=== PATIENT | male | born 1980 | race African-American/Black ===

== ENCOUNTER 2020-02-17 17:31 | Inpatient (IN) | payer MEDICARE, MEDICAID ==
[~2020-02-17] VITALS: Ht 172.7 cm; Wt 78.9 kg
[2020-02-17] MEDS ORDERED: MORPHINE SULFATE 4 MG/ML CPJ (NOT FOR IM USE) IV STA (20:55)
[2020-02-17] MEDS ORDERED: ONDANSETRON HCL 4MG/2ML INJ IV STA (20:55)
[2020-02-17] MEDS ORDERED: FUROSEMIDE 40MG/4ML VIAL IV ONE (21:00)
[2020-02-17] MEDS ORDERED: ASPIRIN 81MG TABLET PO ONE (21:00)
[2020-02-17] MEDS: NITROGLYCERIN 0.4MG TABLET SL SL PRN ×3 (21:16→23:52)
[2020-02-17 21:48] LABS: BASOPHILS % 1.2 % (0.0-2.0); EOSINOPHILS % 1.7 % (0.0-5.0); HEMATOCRIT. 39.1 % (42.0-52.0); HEMOGLOBIN. 12.7 g/dL (14.0-18.0); LYMPHOCYTES % 20.1 % (20.0-50.0); MEAN CORPUSCULAR VOLUME 70.7 fL (80.0-94.0); MEAN PLATELET VOLUME 8.8 fl (7.4-10.4); MONOCYTES % 14.5 % (2.0-8.0); NEUTROPHILS % 62.5 % (40.0-76.0); PLATELET 347 x1000/uL (130-400); RED BLOOD CELL COUNT 5.54 mill/uL (4.7-6.1); RED CELL DISTRIBUTION WIDTH 22.4 % (11.6-14.6)
[2020-02-17 21:50] LABS: CHLORIDE 106 mEq/L (98-107)
[2020-02-17 22:24] LABS: PLATELET ESTIMATE NORMAL
[2020-02-18] MEDS: MORPHINE SULFATE 2 MG/ML CPJ (NOT FOR IM USE) IV PRN ×4 (02:55→20:05)
[2020-02-18] MEDS ORDERED: MAGNESIUM/ALUMINUM HYDROXIDE/SIMETHICONE 30ML UDC PO PRN (08:45)
[2020-02-18] MEDS ORDERED: DOCUSATE SODIUM 100MG CAPSULE PO PRN (08:45)
[2020-02-18] MEDS ORDERED: CLONIDINE 0.1MG TABLET PO PRN (08:45)
[2020-02-18] MEDS ORDERED: ONDANSETRON HCL 4MG/2ML INJ IV PRN (08:45)
[2020-02-18] MEDS ORDERED: HYDROCODONE/ACETAMINOPHEN 5/325MG TABLET PO PRN (08:45)
[2020-02-18] MEDS ORDERED: ACETAMINOPHEN 325MG TABLET PO PRN (08:45)
[2020-02-18 10:17] LABS: TOTAL IRON BINDING CAPACITY 328 ug/dL (250-450)
[2020-02-18] MEDS: PANTOPRAZOLE SODIUM 40 MG/VIAL IV SCH (11:13)
[2020-02-18] MEDS: ENOXAPARIN 40MG/0.4ML SYR SUBCUT SCH (11:13)
[2020-02-18 12:07] LABS: FERRITIN 222 ng/mL (22-322)
[2020-02-18 12:19] LABS: HEPATITIS B SURFACE ANTIGEN NEGATIVE
[2020-02-18 12:48] LABS: HEPATITIS A AB IGM NEGATIVE (NEGATIVE)
[2020-02-18] MEDS ORDERED: FUROSEMIDE 40MG/4ML VIAL IVP SCH (15:00)
[2020-02-18 15:20] VITALS: BP 115/72
[2020-02-18 16:00] VITALS: BP 119/84
[2020-02-18] MEDS ORDERED: FURO40TA5 MT (17:09)
[2020-02-18] MEDS ORDERED: SACU1TAB7 MT (17:13)
[2020-02-18] MEDS ORDERED: METO-539 PO (17:14)
[2020-02-18] MEDS ORDERED: CIPR250S3 PO (17:16)
[2020-02-18] MEDS ORDERED: AMIO100T4 PO (17:20)
[2020-02-18] MEDS ORDERED: METR-167 PO (17:20)
[2020-02-18 20:00] VITALS: BP 110/73
[2020-02-19] VITALS: BP 113/69
[2020-02-19] MEDS: MORPHINE SULFATE 2 MG/ML CPJ (NOT FOR IM USE) IV PRN ×4 (00:33→18:18)
[2020-02-19 04:00] VITALS: BP 127/75
[2020-02-19 08:00] VITALS: BP 106/70
[2020-02-19] MEDS ORDERED: FUROSEMIDE 40MG/4ML VIAL IVP SCH (09:00)
[2020-02-19] MEDS: ENOXAPARIN 40MG/0.4ML SYR SUBCUT SCH (09:34)
[2020-02-19] MEDS: PANTOPRAZOLE SODIUM 40 MG/VIAL IV SCH (09:34)
[2020-02-19 12:00] VITALS: BP 104/50
[2020-02-19] MEDS ORDERED: DIATR MEGLU/DIATRIZOATE SOLN 30ML PO SCH (12:30)
[2020-02-19 16:00] VITALS: BP 109/77
[2020-02-19] MEDS: FUROSEMIDE 40MG/4ML VIAL IVP SCH (17:13)
[2020-02-19] MEDS: FERROUS SULFATE 325MG TABLET PO SCH (17:14)
[2020-02-19] MEDS ORDERED: IOHEXOL-300 100 ML BOTTLE ONE (19:23)
[2020-02-19 20:00] VITALS: BP 114/76
[2020-02-19] MEDS: CARVEDILOL 3.125 MG TABLET PO SCH (21:00)
[2020-02-19] MEDS: ENOXAPARIN 30MG/0.3ML SYR SUBCUT SCH (21:29)
[2020-02-19] MEDS: ASCORBIC ACID 500 MG TABLET PO SCH (21:33)
[2020-02-19] MEDS: MORPHINE SULFATE 4 MG/ML CPJ (NOT FOR IM USE) IV PRN (22:56)
[2020-02-20] VITALS: BP 113/76
[2020-02-20 04:00] VITALS: BP 109/78
[2020-02-20 05:43] LABS: CLARITY URINE CLEAR (CLEAR); COLOR URINE DARK YELLOW (YELLOW); KETONES URINE NEGATIVE (NEGATIVE); LEUKOCYTE ESTERASE URINE NEGATIVE (NEGATIVE); NITRITE URINE NEGATIVE (NEGATIVE); OCCULT BLOOD URINE NEGATIVE (NEGATIVE); PROTEIN URINE NEGATIVE (NEGATIVE); SPECIFIC GRAVITY URINE 1.026 (1.005-1.030)
[2020-02-20 06:11] LABS: *AMPHETAMINES SCREEN URINE NEGATIVE (NEGATIVE); *BARBITURATES SCREEN URINE NEGATIVE (NEGATIVE); *BENZODIAZEPINES SCREEN URINE NEGATIVE (NEGATIVE)
[2020-02-20 06:12] LABS: *COCAINE SCREEN URINE NEGATIVE (NEGATIVE); CANNABINOID URINE SCREEN PRESUMTIVE POSITIVE (NEGATIVE); OPIATES URINE SCREEN PRESUMTIVE POSITIVE (NEGATIVE); PHENCYCLIDINE URINE SCREEN NEGATIVE (NEGATIVE)
[2020-02-20 06:14] LABS: METHADONE URINE SCREEN NEGATIVE (NEGATIVE)
[2020-02-20 06:27] LABS: CHLORIDE 106 mEq/L (98-107)
[2020-02-20 06:33] LABS: BASOPHILS % 1.2 % (0.0-2.0); EOSINOPHILS % 4.2 % (0.0-5.0); HEMATOCRIT. 35.8 % (42.0-52.0); HEMOGLOBIN. 11.9 g/dL (14.0-18.0); LYMPHOCYTES % 24.3 % (20.0-50.0); MEAN CORPUSCULAR HEMOGLOBIN 23.4 pg (28.0-32.0); MEAN CORPUSCULAR VOLUME 70.8 fL (80.0-94.0); MONOCYTES % 13.6 % (2.0-8.0); NEUTROPHILS % 56.7 % (40.0-76.0); PLATELET 360 x1000/uL (130-400); RED BLOOD CELL COUNT 5.06 mill/uL (4.7-6.1); RED CELL DISTRIBUTION WIDTH 22.4 % (11.6-14.6)
[2020-02-20] MEDS: FUROSEMIDE 40MG/4ML VIAL IVP SCH ×2 (08:18→08:47)
[2020-02-20] MEDS: PANTOPRAZOLE SODIUM 40 MG/VIAL IV SCH (08:47)
[2020-02-20] MEDS: ASCORBIC ACID 500 MG TABLET PO SCH (08:47)
[2020-02-20] MEDS: ENOXAPARIN 30MG/0.3ML SYR SUBCUT SCH (08:48)
[2020-02-20] MEDS: FERROUS SULFATE 325MG TABLET PO SCH ×2 (10:17→12:15)
[2020-02-20] MEDS: CARVEDILOL 3.125 MG TABLET PO SCH (10:18)
[2020-02-20] MEDS ORDERED: COR3 PO (10:32)
[2020-02-20] MEDS ORDERED: LEVO500T2 MT (10:33)
[2020-02-20] MEDS: MORPHINE SULFATE 4 MG/ML CPJ (NOT FOR IM USE) IV PRN (10:41)
[2020-02-20 12:30] VITALS: BP 108/69
== END 2020-02-20 12:56 | disposition home or self-care (01) | DRG 308 ==
LOC: ER 17:31 → 7WST 02-18 00:12 → ENRESERV 02-18 11:06 → ER 02-18 14:18 → 5WST 02-18 23:26
PROVIDERS: ADMIT Internal Medicine; ATTEND Internal Medicine
PROC: 4B02XTZ Measurement of Cardiac Defibrillator, External Approach (ICD-10-PCS; principal; 2020-02-20)
DX: T82.120A Displacement of cardiac electrode, initial encounter (principal); J96.00 Acute respiratory failure, unspecified whether with hypoxia or hypercapnia; I50.23 Acute on chronic systolic (congestive) heart failure; J18.9 Pneumonia, unspecified organism; D68.59 Other primary thrombophilia; I42.9 Cardiomyopathy, unspecified; I47.2 Ventricular tachycardia; E72.20 Disorder of urea cycle metabolism, unspecified; D50.9 Iron deficiency anemia, unspecified; R91.8 Other nonspecific abnormal finding of lung field; E78.5 Hyperlipidemia, unspecified; F12.90 Cannabis use, unspecified, uncomplicated; R07.89 Other chest pain; R10.9 Unspecified abdominal pain; Y83.1 Surgical operation with implant of artificial internal device as the cause of abnormal reaction of the patient, or of later complication, without mention of misadventure at the time of the procedure; Z20.828 Contact with and (suspected) exposure to other viral communicable diseases; I11.0 Hypertensive heart disease with heart failure; R74.0 Nonspecific elevation of levels of transaminase and lactic acid dehydrogenase [LDH]; Z87.01 Personal history of pneumonia (recurrent); Z90.49 Acquired absence of other specified parts of digestive tract; Y92.89 Other specified places as the place of occurrence of the external cause
CPT/HCPCS: 36415; 71045; 74177; 76700; 80048; 80053; 80076; 80305; 81003; 82140; 82248; 82728; 83540; 83550; 83880; 84484; 85025; 86705; 86709; 86803; 87340; 93005; 93306; 93970; 97162; 99285; C9113; J1650; J1940; J2270; J2405; Q9963; Q9967; U0003-CS

== ENCOUNTER 2020-04-18 22:36 | Inpatient (IN) | payer MEDICARE, MEDICAID ==
[~2020-04-18] VITALS: Ht 175.3 cm; Wt 117.0 kg
[~2020-04-18 22:36] MED LIST: AMIO100T4 PO; COR3 PO; FURO40TA5 MT; LEVO500T2 MT; SACU1TAB7 MT
[2020-04-18] MEDS ORDERED: ONDANSETRON HCL 4MG/2ML INJ IV STA (23:12)
[2020-04-18] MEDS ORDERED: KETOROLAC 30MG/ML VIAL IV STA (23:12)
[2020-04-18] MEDS ORDERED: ASPIRIN 81MG TABLET PO ONE (23:15)
[2020-04-18] MEDS ORDERED: MAGNESIUM/ALUMINUM HYDROXIDE/SIMETHICONE 30ML UDC PO ONE (23:15)
[2020-04-18] MEDS ORDERED: VISCOUS LIDOCAINE 2% 15 ML UDC PO ONE (23:15)
[2020-04-18] MEDS ORDERED: IOHEXOL-350 100 ML BOTTLE ONE (23:43)
[2020-04-18 23:57] LABS: CHLORIDE 102 mEq/L (98-107)
[2020-04-19] VITALS (30 sets, daily range): BP systolic 94–138; BP diastolic 56–96
[2020-04-19 00:01] LABS: ETHANOL BLOOD < 10 mg/dL
[2020-04-19 00:14] LABS: EOSINOPHILS % 0.5 % (0.0-5.0); HEMATOCRIT. 37.8 % (42.0-52.0); LYMPHOCYTES % 18.9 % (20.0-50.0); MEAN CORPUSCULAR HEMOGLOBIN 23.3 pg (28.0-32.0); MEAN CORPUSCULAR VOLUME 73.4 fL (80.0-94.0); MEAN PLATELET VOLUME 9.4 fl (7.4-10.4); MONOCYTES % 14.4 % (2.0-8.0); NEUTROPHILS % 65.2 % (40.0-76.0); PLATELET 528 x1000/uL (130-400); RED BLOOD CELL COUNT 5.15 mill/uL (4.7-6.1); RED CELL DISTRIBUTION WIDTH 24.8 % (11.6-14.6)
[2020-04-19] MEDS ORDERED: SODIUM CHLORIDE 0.9% 500 ML IV ONE (00:15)
[2020-04-19 00:29] LABS: INR 1.5; PROTHROMBIN TIME 15.7 sec (9.6-11.0)
[2020-04-19] MEDS ORDERED: FUROSEMIDE 40MG/4ML VIAL IVP ONE (00:30)
[2020-04-19] MEDS ORDERED: VANCOMYCIN 1 G PREMIX 200 ML IV SCH (00:30)
[2020-04-19] MEDS ORDERED: MORPHINE SULFATE 4 MG/ML CPJ (NOT FOR IM USE) IV ONE ×2 (00:30)
[2020-04-19] MEDS ORDERED: PIPERACILLIN/TAZ 3.375G PREMIX 50 ML IV ONE (00:30)
[2020-04-19 00:55] LABS: BG BASE EXCESS 1.3 mmol/L (-2.0-2.0); BG CARBOXYHEMOGLOBIN 1.4 % (0.5-1.5); BG DEOXYHEMOGLOBIN 8.7 % (0.0-5.0); BG FRACTION INSPIRED OXYGEN 21; BG HCO3 ACT 25.2 mmol/L (22.0-26.0); BG METHEMOGLOBIN 0.2 % (0.0-1.5); BG OXYGEN SATURATION 91.2 % (92.0-98.5); BG OXYHEMOGLOBIN 89.7 % (94.0-97.0); BG PCO2 37.5 mmHg (35.0-45.0); BG PH 7.446 (7.350-7.450); BG PO2 64.3 mmHg (75.0-100.0); BG SAMPLE SITE RIGHT RADIAL; BG TOTAL HEMOGLOBIN 12.5 g/dL (12.0-18.0); BG VENT MODE ROOM AIR
[2020-04-19] MEDS ORDERED: ENOXAPARIN 120MG/0.8ML SYR SUBCUT ONE (01:00)
[2020-04-19 01:42] LABS: CLARITY URINE CLEAR (CLEAR); COLOR URINE DARK YELLOW (YELLOW); KETONES URINE NEGATIVE (NEGATIVE); LEUKOCYTE ESTERASE URINE NEGATIVE (NEGATIVE); NITRITE URINE NEGATIVE (NEGATIVE); OCCULT BLOOD URINE NEGATIVE (NEGATIVE); PROTEIN URINE 1+ (NEGATIVE); SPECIFIC GRAVITY URINE 1.044 (1.005-1.030)
[2020-04-19 01:56] LABS: *AMPHETAMINES SCREEN URINE NEGATIVE (NEGATIVE); *BARBITURATES SCREEN URINE NEGATIVE (NEGATIVE); *BENZODIAZEPINES SCREEN URINE NEGATIVE (NEGATIVE); *COCAINE SCREEN URINE PRESUMTIVE POSITIVE (NEGATIVE); CANNABINOID URINE SCREEN PRESUMTIVE POSITIVE (NEGATIVE); METHADONE URINE SCREEN NEGATIVE (NEGATIVE); OPIATES URINE SCREEN PRESUMTIVE POSITIVE (NEGATIVE); PHENCYCLIDINE URINE SCREEN NEGATIVE (NEGATIVE)
[2020-04-19 05:12] LABS: PLATELET ESTIMATE INCREASED
[2020-04-19] MEDS ORDERED: MORPHINE SULFATE 2 MG/ML CPJ (NOT FOR IM USE) IV PRN (06:50)
[2020-04-19] MEDS ORDERED: DOCUSATE SODIUM 100MG CAPSULE PO PRN (07:15)
[2020-04-19] MEDS ORDERED: MAGNESIUM/ALUMINUM HYDROXIDE/SIMETHICONE 30ML UDC PO PRN (07:15)
[2020-04-19] MEDS ORDERED: ONDANSETRON HCL 4MG/2ML INJ IV PRN (07:15)
[2020-04-19] MEDS ORDERED: GUAIFENESIN 200MG/10ML SUGAR FREE UDC PO PRN (07:15)
[2020-04-19] MEDS ORDERED: DIPHENHYDRAMINE 50MG/ML VIAL IV PRN (07:15)
[2020-04-19] MEDS ORDERED: ACETAMINOPHEN 325MG TABLET PO PRN (07:15)
[2020-04-19] MEDS ORDERED: LORAZEPAM 2MG/ML CPJ IV PRN (07:15)
[2020-04-19] MEDS ORDERED: CLONIDINE 0.1MG TABLET PO PRN (07:15)
[2020-04-19] MEDS ORDERED: IPRATROPIUM/ALBUTEROL 0.5-3(2.5)MG/3ML NEB HHN PRN (07:15)
[2020-04-19] MEDS: LEVOFLOXACIN 500MG PREMIX 100 ML IV SCH (09:50)
[2020-04-19 09:52] LABS: T4 FREE 1.87 ng/dL (0.76-1.46)
[2020-04-19] MEDS ORDERED: LIDOCAINE HCL/PF 1% 2ML VIAL ONE (10:17)
[2020-04-19] MEDS: FUROSEMIDE 40MG/4ML VIAL IVP SCH (11:13)
[2020-04-19 14:01] LABS: BG BILEVEL POS AIRWAY PRESSURE 15/5; BG CARBOXYHEMOGLOBIN 0.8 % (0.5-1.5); BG DEOXYHEMOGLOBIN 0.8 % (0.0-5.0); BG FRACTION INSPIRED OXYGEN 40; BG HCO3 ACT 20.4 mmol/L (22.0-26.0); BG METHEMOGLOBIN 0.3 % (0.0-1.5); BG OXYGEN SATURATION 99.2 % (92.0-98.5); BG OXYHEMOGLOBIN 98.1 % (94.0-97.0); BG PCO2 35.1 mmHg (35.0-45.0); BG PH 7.382 (7.350-7.450); BG PO2 163.5 mmHg (75.0-100.0); BG SAMPLE SITE RIGHT RADIAL; BG TOTAL HEMOGLOBIN 12.8 g/dL (12.0-18.0); BG VENT MODE MASK - BIPAP
[2020-04-19] MEDS: SODIUM CHLORIDE 0.9% INJ 3ML FLUSH IVF SCH ×2 (14:54→22:10)
[2020-04-19] MEDS: MORPHINE SULFATE 2 MG/ML CPJ (NOT FOR IM USE) IV PRN (15:33)
[2020-04-19 17:21] LABS: CREATINE KINASE MB FRACTION 1.7 ng/mL (0.5-3.6)
[2020-04-19] MEDS: ENOXAPARIN 120MG/0.8ML SYR SUBCUT SCH (17:42)
[2020-04-19] MEDS: HYDROCODONE/ACETAMINOPHEN 10/325MG TABLET PO PRN (21:05)
[2020-04-19 23:29] LABS: CREATINE KINASE MB FRACTION 1.4 ng/mL (0.5-3.6)
[2020-04-20] VITALS (47 sets, daily range): BP systolic 51–141; BP diastolic 39–103
[2020-04-20] MEDS: MORPHINE SULFATE 2 MG/ML CPJ (NOT FOR IM USE) IV PRN ×2 (00:15→18:34)
[2020-04-20] MEDS: HYDROCODONE/ACETAMINOPHEN 10/325MG TABLET PO PRN ×2 (05:37→13:17)
[2020-04-20 05:42] LABS: HEMATOCRIT. 34.3 % (42.0-52.0); MEAN CORPUSCULAR HEMOGLOBIN 23.5 pg (28.0-32.0); MEAN CORPUSCULAR VOLUME 73.2 fL (80.0-94.0); MEAN PLATELET VOLUME 8.6 fl (7.4-10.4); PLATELET 482 x1000/uL (130-400); RED BLOOD CELL COUNT 4.68 mill/uL (4.7-6.1); RED CELL DISTRIBUTION WIDTH 23.9 % (11.6-14.6)
[2020-04-20 05:51] LABS: CHLORIDE 101 mEq/L (98-107)
[2020-04-20] MEDS: SODIUM CHLORIDE 0.9% INJ 3ML FLUSH IVF SCH ×3 (06:09→21:21)
[2020-04-20] MEDS: ENOXAPARIN 120MG/0.8ML SYR SUBCUT SCH ×2 (06:11→17:37)
[2020-04-20 07:05] LABS: PLATELET ESTIMATE INCREASED
[2020-04-20 08:35] LABS: BG BASE EXCESS -0.7 mmol/L (-2.0-2.0); BG BILEVEL POS AIRWAY PRESSURE 15/5; BG CARBOXYHEMOGLOBIN 0.7 % (0.5-1.5); BG DEOXYHEMOGLOBIN 0.8 % (0.0-5.0); BG FRACTION INSPIRED OXYGEN 40; BG HCO3 ACT 22.7 mmol/L (22.0-26.0); BG METHEMOGLOBIN 0.1 % (0.0-1.5); BG OXYGEN SATURATION 99.2 % (92.0-98.5); BG OXYHEMOGLOBIN 98.4 % (94.0-97.0); BG PCO2 33.1 mmHg (35.0-45.0); BG PH 7.454 (7.350-7.450); BG PO2 157.8 mmHg (75.0-100.0); BG SAMPLE SITE RIGHT BRACHIAL; BG TOTAL HEMOGLOBIN 11.7 g/dL (12.0-18.0); BG VENT MODE MASK - BIPAP; BG VENT RATE 12 set
[2020-04-20] MEDS: FUROSEMIDE 40MG/4ML VIAL IVP SCH (09:28)
[2020-04-20] MEDS: LEVOFLOXACIN 500MG PREMIX 100 ML IV SCH (09:29)
[2020-04-20] MEDS: FUROSEMIDE 20MG/2ML VIAL IVP SCH (17:37)
[2020-04-21] VITALS (29 sets, daily range): BP systolic 68–154; BP diastolic 24–104
[2020-04-21] MEDS: HYDROCODONE/ACETAMINOPHEN 10/325MG TABLET PO PRN ×3 (01:32→21:06)
[2020-04-21] MEDS: MORPHINE SULFATE 2 MG/ML CPJ (NOT FOR IM USE) IV PRN ×3 (03:00→22:00)
[2020-04-21 06:07] LABS: HEMATOCRIT 34.5 % (42.0-52.0); HEMOGLOBIN 10.9 g/dL (14.0-18.0); MEAN CORPUSCULAR HEMOGLOBIN 23.2 pg (28.0-32.0); MEAN CORPUSCULAR VOLUME 73.9 fL (80.0-94.0); PLATELET 452 x1000/uL (130-400); RED BLOOD CELL COUNT 4.68 mill/uL (4.7-6.1); RED CELL DISTRIBUTION WIDTH 24.8 % (11.6-14.6)
[2020-04-21] MEDS: ENOXAPARIN 120MG/0.8ML SYR SUBCUT SCH ×2 (06:23→17:00)
[2020-04-21] MEDS: SODIUM CHLORIDE 0.9% INJ 3ML FLUSH IVF SCH ×3 (06:23→21:07)
[2020-04-21 06:45] LABS: CHLORIDE 102 mEq/L (98-107)
[2020-04-21] MEDS: LEVOFLOXACIN 500MG PREMIX 100 ML IV SCH (08:02)
[2020-04-21] MEDS: FUROSEMIDE 40MG/4ML VIAL IVP SCH (08:03)
[2020-04-21] MEDS: FUROSEMIDE 20MG/2ML VIAL IVP SCH (17:00)
== END 2020-04-22 02:20 | disposition left against medical advice (07) | DRG 175 ==
LOC: ER 22:47 → MICUSO 04-19 00:50 → ENRESERV 04-19 02:02 → 7WST 04-21 18:12
PROVIDERS: ADMIT Internal Medicine; ATTEND Internal Medicine
PROC: 5A09357 Assistance with Respiratory Ventilation, Less than 24 Consecutive Hours, Continuous Positive Airway Pressure (ICD-10-PCS; principal; 2020-04-19)
PROC: 5A09357 Assistance with Respiratory Ventilation, Less than 24 Consecutive Hours, Continuous Positive Airway Pressure (ICD-10-PCS; 2020-04-20)
DX: I26.99 Other pulmonary embolism without acute cor pulmonale (principal); J96.21 Acute and chronic respiratory failure with hypoxia; I50.23 Acute on chronic systolic (congestive) heart failure; D68.59 Other primary thrombophilia; E46 Unspecified protein-calorie malnutrition; I42.8 Other cardiomyopathies; Z20.828 Contact with and (suspected) exposure to other viral communicable diseases; E66.01 Morbid (severe) obesity due to excess calories; G89.29 Other chronic pain; D72.810 Lymphocytopenia; I11.0 Hypertensive heart disease with heart failure; Z53.29 Procedure and treatment not carried out because of patient's decision for other reasons; E78.00 Pure hypercholesterolemia, unspecified; F12.10 Cannabis abuse, uncomplicated; E78.5 Hyperlipidemia, unspecified; F14.10 Cocaine abuse, uncomplicated; M54.9 Dorsalgia, unspecified; J84.10 Pulmonary fibrosis, unspecified; F17.210 Nicotine dependence, cigarettes, uncomplicated; Z95.810 Presence of automatic (implantable) cardiac defibrillator; Z79.899 Other long term (current) drug therapy; Z82.49 Family history of ischemic heart disease and other diseases of the circulatory system; Z68.38 Body mass index [BMI] 38.0-38.9, adult; Z90.49 Acquired absence of other specified parts of digestive tract; Z79.1 Long term (current) use of non-steroidal anti-inflammatories (NSAID); Z79.51 Long term (current) use of inhaled steroids
CPT/HCPCS: 36415; 36600; 71045; 71275; 80048; 80053; 80061; 80305; 80320; 81003; 82375; 82550; 82553; 82805; 82962; 83036; 83605; 83880; 84145; 84439; 84443; 84484; 85025; 85027; 85379; 87426; 93005; 93970; 94660; 99291; J1650; J1885; J1940; J1956; J2270; J2405; J2543; J3370; J3490; J7040; Q9967; G0480